=== PATIENT | female | born 1975 | race Caucasian/White ===

== ENCOUNTER 2020-01-17 09:14 | Outpatient (CLI) | payer OTHER ==
--- NOTE | 2020-01-17 10:32 | MMO ---
Bilateral MAMMO Bilat Diag [facility]. CLINICAL HISTORY: Patient is 44 years old and is seen for diagnostic exam,palpable abnormality in the lower-inner region of the right breast, non-bloody discharge and pain in the right breast. The patient has no family history of breast cancer. The patient has no personal history of cancer. VIEWS: The views performed were: bilateral craniocaudal with tomosynthesis; bilateral mediolateral oblique with tomosynthesis; and bilateral mediolateral with tomosynthesis. FILMS COMPARED: The present examination has been compared to prior imaging studies performed at [facility] on 05/24/2007 and 01/17/2020. This study has been interpreted with the assistance of computer-aided detection. MAMMOGRAM FINDINGS: The breasts are extremely dense, which may lower the sensitivity of mammography. There is a stable focal asymmetry seen in the posterior lower-inner region of the right breast. There are no suspicious masses, suspicious calcifications, or new areas of architectural distortion. IMPRESSION: THERE IS NO MAMMOGRAPHIC EVIDENCE OF MALIGNANCY. A ROUTINE FOLLOW-UP MAMMOGRAM IN 1 YEAR IS RECOMMENDED. THE RESULTS OF THIS EXAM WERE SENT TO THE PATIENT. ACR BI-RADS Category 2 - Benign finding MAMMOGRAPHY NOTE: 1. A negative mammogram report should not delay a biopsy if a dominant of clinically suspicious mass is present. 2. Approximately 10% to 15% of breast cancers are not detected by mammography. 3. Adenosis and dense breasts may obscure an underlying neoplasm. Reported by: JOANA HERNANDEZ MD Electonically Signed: [id number]
--- NOTE | 2020-01-17 11:48 | ULT ---
RIGHT BREAST ULTRASOUND: Date: 01/17/2020 HISTORY: Palpable abnormality noted in the lower inner right breast at doctor's office. COMPARISON: Mammogram done today. FINDINGS: At the time of this examination, a discrete palpable abnormality was not noticed. Imaging of the [address] from 3 to 6 o'clock was performed, and failed to show any cystic or solid mass. IMPRESSION: BI-RADS Category 2 - Benign findings.
== END 2020-01-17 09:15 | disposition home or self-care (01) ==
LOC: BICMAMMO 09:14
PROVIDERS: ATTEND Student in an Organized Health Care Education/Training Program
DX: N63.10 Unspecified lump in the right breast, unspecified quadrant (principal)
CPT/HCPCS: 77066; G0279